=== PATIENT | male | born 1970 | race Caucasian/White ===

== ENCOUNTER 2019-07-19 09:17 | Outpatient (CLI) | payer OTHER, SELFPAY ==
[2019-07-19 10:07] LABS: Hemoglobin 16.6 g/dL (14.0-18.0); Mean Corpuscular HGB Conc 33.9 g/dl (32-36); Mean Corpuscular Hemoglobin 30.3 pg (26-34); Mean Corpuscular Volume 89.4 fl (80-100); Mean Platelet Volume 10.1 fl (7.4-10.4); Platelet Count Result 205 k/mm3 (150-375); Red Blood Count 5.48 M/mm3 (4.6-6.20); Red Cell Distribution Width 12.8 % (11.5-14.5); White Blood Count 5.7 K/mm3 (4.5-10.0)
[2019-07-19 10:19] LABS: Cholesterol 223 mg/dL (0-200); HDL Direct 42 mg/dL; Triglycerides 84 mg/dL (<150)
[2019-07-19 10:22] LABS: Blood Urea Nitrogen 14 mg/dL (9-20); Calcium 9.2 mg/dL (8.4-10.2); Carbon Dioxide 30 mmol/L (22-30); Chloride 103 mmol/L (98-107); Estimated Glomerular Filt Rate > 60; Glucose 95 mg/dL (75-110); Potassium 4.2 mmol/L (3.4-5.0); Sodium 139 mmol/L (137-145)
[2019-07-19 10:30] LABS: LDL Cholesterol Direct 149 mg/dL
[2019-07-19 10:50] LABS: Prostate Specific Antigen 0.5 ng/mL (< OR = 4.0)
== END 2019-07-19 09:18 | disposition home or self-care (01) ==
PROVIDERS: Nurse Practitioner Family; PCP Family Medicine; Visit Provider Physician Assistant Medical
DX: I10 Essential (primary) hypertension (principal); Z13.220 Encounter for screening for lipoid disorders; Z12.5 Encounter for screening for malignant neoplasm of prostate
CPT/HCPCS: 36415; 80048; 80061; 84153; 84443; 85027; G0103

== ENCOUNTER 2019-07-26 09:28 | Outpatient (CLI) | payer OTHER, SELFPAY ==
--- NOTE | 2019-07-26 10:25 | ECHO_ITS ---
Patient Info Name: Renny Gonzalez Age: 49 years : 1970 Gender: Male Ht: 76 in Wt: 280 lbs BSA: 2.65 m2 HR: 68 bpm BP: 142 / 90 mmHg Technical Quality: Good Exam Date: 07/26/2019 10:34 AM Exam Location: [facility] Patient Status: Outpatient Admit Date: 07/26/2019 Staff Ordering Physician: Darius Yin MD Laundry Housekeeping Aide: Yaima Young RDCS Attending Provider: Darius Yin MD Referring Physician: Humphrey ROGER; Exam Type: CA echo doppler color flow Study Info Indications - palpitations Complete two-dimensional, color flow and Doppler transthoracic echocardiogram is performed. Summary 1. Left ventricular chamber dimension is normal. 2. Left ventricular systolic function is normal, estimated at 60-65%. 3. There is mildly increased left ventricular wall thickness. 4. The left ventricular diastolic function is grade I diastolic dysfunction. 5. E/e' 8 is minimally elevated. 6. Right ventricular chamber dimension is mildly enlarged. 7. Left atrial chamber dimension is mildly enlarged. 8. Right atrial chamber dimension is mildly enlarged. 9. There is mild mitral valve regurgitation. 10. There is trace tricuspid valve regurgitation. 11. No pulmonary hypertension, estimated pulmonary arterial systolic pressure is 30 mmHg. 12. There is mild pulmonic regurgitation. Left Ventricle E/e' 8 is minimally elevated. Left ventricular chamber dimension is normal. Left ventricular systolic function is normal, estimated at 60-65%. There is mildly increased left ventricular wall thickness. The left ventricular diastolic function is grade I diastolic dysfunction. Right Ventricle Right ventricular chamber dimension is mildly enlarged. Right ventricular systolic function is normal. Left Atria Left atrial chamber dimension is mildly enlarged. Right Atria Right atrial chamber dimension is mildly enlarged. Aortic Valve The aortic valve is trileaflet. There is no aortic valve stenosis. There is no aortic valve regurgitation. Pulmonic Valve There is mild pulmonic regurgitation. Mitral Valve There is no mitral valve stenosis. There is mild mitral valve regurgitation. Tricuspid Valve There is trace tricuspid valve regurgitation. No pulmonary hypertension, estimated pulmonary arterial systolic pressure is 30 mmHg. Pericardium/Pleural There is no pericardial effusion. Inferior Vena Cava Normal inferior vena cava with >50% collapse upon inspiration consistent with normal right atrial pressure, 5 mmHg. Aorta The aortic root size at the sinus of Valsalva is normal. Left Ventricular Outflow Tract Name Value Normal LVOT 2D LVOT Diameter 2.2 cm LVOT Doppler LVOT Peak Gradient 4 mmHg LVOT Mean Gradient 2 mmHg LVOT VTI 22 cm LVOT VTI/AV VTI Ratio 1.0 LVOT Stroke Volume 88 ml LVOT CO 15.6 l/min LVOT CI 5.9 l/min/m2 Pulmonic Valve
--- NOTE | 2019-07-29 15:18 | WPDHOLTEREM ---
Holter/Event Monitor Holter/Event Monitor Date of procedure: 07/26/19 Procedure Type: 24 hour holter monitor Indications: Palpitations Conclusion: 1. 24 hour holter monitor on 07/26/19. 2. Underlying rhythm is sinus rhythm. HR range 44-136 bpm; average HR 67 bpm. 3. There are 4 premature supraventricular complexes. No supraventricular tachycardia. 4. There are 3,383 premature ventricular complexes, 2 ventricular couplets, 1,114 ventricular bigeminy, 9 ventricular trigeminy. No ventricular tachycardia. 5. No sinoatrial or atrioventricular blocks. No significant pauses greater than seconds. 6. No symptoms available for correlation.
== END 2019-07-26 09:29 | disposition home or self-care (01) ==
PROVIDERS: PCP Family Medicine; Visit Provider Family Medicine
DX: R00.2 Palpitations (principal); I95.1 Orthostatic hypotension; I49.3 Ventricular premature depolarization; I34.0 Nonrheumatic mitral (valve) insufficiency; I37.1 Nonrheumatic pulmonary valve insufficiency
CPT/HCPCS: 93225; 93226; 93306

== ENCOUNTER 2020-02-25 00:38 | Outpatient (CLI) | payer OTHER, SELFPAY ==
[2020-02-25 18:51] LABS: SARS-CoV-2 RNA PCR Negative
== END 2020-02-25 00:39 | disposition home or self-care (01) ==
LOC: ANHCOVIDDT 00:38
PROVIDERS: PCP Family Medicine; Visit Provider Internal Medicine Gastroenterology
DX: Z01.818 Encounter for other preprocedural examination (principal); Z20.828 Contact with and (suspected) exposure to other viral communicable diseases
CPT/HCPCS: 87635; C9803; U0003

== ENCOUNTER 2020-02-28 00:42 | Day surgery (SDC) | payer OTHER, SELFPAY ==
[2020-02-19 14:22] VITALS: BMI 33.0
[2020-02-28 09:59] VITALS: BP 121/87; PULSE 74; RESP 16; TEMP 36.6; O2SAT 74; BMI 33.1
[2020-02-28] MEDS: LACTATED RINGERS 1,000 ML 150 ML IV CONT (10:04)
--- NOTE | 2020-02-28 11:06 | PM.HPGS ---
History of Present Illness History of Present Illness Consent: Risks, benefits, and alternatives have been discussed and questions answered. Patient agrees to proceed with procedure. Chief complaint: Neoplasm Screening Narrative: Renny Gonzalez is a 49 year old male here for first screening colonoscopy Review of Systems Constitutional: Constitutional: Denies headache(s) and Denies weakness Eyes: Eyes: Denies blurry vision ENT: Reports Normal hearing present, Denies headache(s) and Denies neck pain Cardiovascular: Cardiovascular: Denies chest pain and Denies dyspnea Respiratory: Respiratory: Denies dyspnea Gastrointestinal: Gastrointestinal: Reports no additional gastrointestinal complaints Genitourinary: Genitourinary: Denies dysuria Musculoskeletal: Musculoskeletal: Denies neck pain Integumentary/Breasts: Skin/Breast: Denies dry skin Neurologic: Reports Normal hearing present, Denies headache(s) and Denies weakness Psychiatric: Psychiatric: Denies anxiety Endocrine: Endocrine: Denies change in body appearance Hematologic/Lymphatic: Hematologic/Lymphatic: Denies easy bleeding Allergic/Immunologic: Allergic/Immunologic: Denies urticaria [facility] Past Medical History Medical History (Updated 02/28/20 @ 11:06 by Steve Billings MD) Colon cancer screening HLD (hyperlipidemia) HTN (hypertension), benign Family History Family History (Updated 12/01/17 @ 15:37 by DOCTOR UNKNOWN) Father Diabetes mellitus Hypertension Family history of cardiovascular disease Malignant neoplasm of prostate Mother Hypertension Social History Social History (Updated 07/26/19 @ 08:30 by Caty Priest) Smoking status: Never smoker Alcohol intake: current Drinks per week: 1 Substance use: never Substance use type: does not use Living arrangements: with family Gender identity (if verbalized by the patient): Male Spiritual care concerns: No Meds Home Medications and Allergies Home Medications Medication Instructions Recorded Confirmed Type aspirin [Adult Low Dose Aspirin] 81 mg PO DAILY 02/19/20 02/28/20 History sodium,potassium,mag sulfates 17.5 See Rx Instructions PO .COMPLEX 02/26/20 History gram-3.13 gram-1.6 gram oral soln Allergies Allergy/AdvReac Type Severity Reaction Status Date / Time Penicillins Allergy Intermediate Rash Verified 02/28/20 09:58 Vital Signs Vital Signs - 24 hr 02/28/20 09:59 Temperature 97.8 F Pulse Rate 74 Respiratory Rate 16 Blood Pressure 121/87 Pulse Oximetry 74 L Exam Const: General: comfortable and no acute distress HENMT: General nose exam: Normal nares present Eyes: General: appearance normal, both eyes and all related structures Neck: Neck: no JVD Resp: Auscultation: clear to auscultation bilaterally Cardio: Rate: regular rate Rhythm: regular rhythm GI: Inspection: non-distended GI Palp: Yes Soft to palpation Skin: General skin exam: normal color Neuro: General: gait normal Speech: normal speech Extrem: General: normal to inspection Psych: Mental Status: mental status grossly normal Assessment and Plan Assessment and plan (1) Colon cancer screening: Code(s): Z12.11 - Encounter for screening for malignant neoplasm of colon Status: Acute Assessment and Plan: will proceed with colonoscopy
[2020-02-28 11:31] VITALS: BP 121/84; PULSE 66; RESP 19; O2SAT 96
[2020-02-28 11:41] VITALS: BP 134/82; PULSE 80; RESP 24; O2SAT 99
[2020-02-28 11:51] VITALS: BP 145/85; PULSE 71; RESP 14; O2SAT 99
== END 2020-02-28 12:07 | disposition home or self-care (01) ==
PROVIDERS: PCP Family Medicine; Visit Provider Internal Medicine Gastroenterology
PROC: 0DJD8ZZ Inspection of Lower Intestinal Tract, Via Natural or Artificial Opening Endoscopic (ICD-10-PCS; CPT 45378; principal; 2020-02-28 11:15)
DX: Z12.11 Encounter for screening for malignant neoplasm of colon (principal); D12.2 Benign neoplasm of ascending colon; K57.30 Diverticulosis of large intestine without perforation or abscess without bleeding; K64.8 Other hemorrhoids; I10 Essential (primary) hypertension; E78.5 Hyperlipidemia, unspecified
CPT/HCPCS: 45385; 88305; J2704; J7120

== ENCOUNTER 2020-05-15 07:42 | Outpatient (CLI) | payer OTHER, SELFPAY ==
--- NOTE | ~2020-05-15 | CT_ITS ---
EXAMINATION: CT soft tissue neck w con EXAM DATE: 05/15/2020 08:33 INDICATION: R07.0 - Throat pain. TECHNIQUE: Spiral CT of the neck was performed following intravenous injection of 75 mL Omnipaque 350 . Axial, coronal and sagittal images were reviewed. The dose-length product (DLP) for this examinat ion was 1147.69 mGy-cm. The exposure was tailored according to patient size (auto mA exposure contro l), and iterative reconstruction (ASIR) was used as additional dose reduction technique. There is no prior study for comparison. FINDINGS: The thyroid gland is unremarkable. The submandibular and parotid glands are symmetric. There is no cervical lymphadenopathy. There are no masses identified. The superior mediastinum is unremarkable. The airway is unremarkable. Parapharyngeal and pre-glottic fat planes are preserve d. The opacified vasculature is patent. There is no carotid stenosis. The orbits are unremarkable. Visualized sinuses and mastoid air cells are well aerated. Lung apices unremarkable. There is m oderate disc disease at at C6-7, mild to moderate at C5-6, left neural foraminal stenosis at these le vels. IMPRESSION: Lower cervical spondylosis.. Reviewed, dictated and finalized at location B. MECHANIC
[2020-05-15 08:20] LABS: Estimated Glomerular Filt Rate > 60
== END 2020-05-15 07:43 | disposition home or self-care (01) ==
PROVIDERS: PCP Family Medicine; Visit Provider Otolaryngology
DX: R07.0 Pain in throat (principal); M47.892 Other spondylosis, cervical region
CPT/HCPCS: 70491; Q9967

== ENCOUNTER → 2020-10-16 12:03 | Outpatient (REF) | payer OTHER, SELFPAY | LOC: ANHLAB 12:03 | PROVIDERS: PCP Family Medicine; Visit Provider Surgery Plastic and Reconstructive Surgery | DX: L57.0 Actinic keratosis (principal) | CPT/HCPCS: 88305 ==

== ENCOUNTER 2021-07-14 08:34 | Outpatient (CLI) | payer OTHER, SELFPAY ==
--- NOTE | ~2021-07-14 | US_ITS ---
EXAMINATION: US venous doppler [facility] DATE: 07/14/2021 09:40 INDICATION: Left lower limb localized swelling. TECHNIQUE: Grayscale ultrasound images without and with compression and Doppler ultrasound images of the left lower extremity veins were obtained. COMPARISON: None. FINDINGS: The visualized portions of left common femoral vein, profunda (deep) femoral vein, femoral vein, and greater saphenous vein outflow are patent. There is thrombus in left popliteal, posterior tibial, and peroneal veins. IMPRESSION: 1. Deep vein thrombosis involving left popliteal, posterior tibial, and peroneal veins. I discussed this result with Dr. Gonzalez. Reviewed, dictated and finalized at location A. IMPRESSION: 1. Deep vein thrombosis involving left popliteal, posterior tibial, and perone al veins. I discussed this result with Dr. Gonzalez.
== END 2021-07-14 08:35 | disposition home or self-care (01) ==
LOC: ANHIMG 08:35
PROVIDERS: PCP Family Medicine; Visit Provider Physician Assistant Medical
DX: I82.432 Acute embolism and thrombosis of left popliteal vein (principal); I82.442 Acute embolism and thrombosis of left tibial vein; I82.452 Acute embolism and thrombosis of left peroneal vein
CPT/HCPCS: 93971

== ENCOUNTER 2021-07-16 08:00 | Outpatient (CLI) | payer OTHER, SELFPAY ==
[2021-07-16 08:23] LABS: Add Urine Microscopic? YES; Appearance Urine Clear (Clear); Bilirubin Urine Negative (Negative); Blood Urine 1+ (Negative); Color Urine Yellow (Yellow); Glucose Urine UA Negative (Negative); Ketones Urine Trace mg/dL (Negative); Leukocyte Esterase Ur Negative LEU/UL (NEGATIVE); Mucus Urine Rare /lpf; Nitrate Urine Negative (Negative); Protein Urine Negative (Negative); Specific Grav Ur 1.021 (1.001-1.035); Squamous Epithelial Cell Urine Rare /hpf (Few); Urobilinogen Urine Negative mg/dL (<2.0); WBC Urine 0-3 /hpf (0-3)
[2021-07-16 08:23] LABS: Basophils Absolute Auto 0.1 K/mm3 (0.0-0.1); Basophils Percent Auto 1.1 % (0.2-1.2); Eosinophils Absolute Auto 0.3 K/mm3 (0-0.3); Eosinophils Percent Auto 4.1 % (0-4.4); Hematocrit 47.4 % (42.0-52.0); Hemoglobin 15.9 g/dL (14.0-18.0); Immature Granulocyte Absolute 0.02 K/mm3 (0.00-0.031); Immature Granulocyte Percent A 0.3 % (0-0.5); Lymphocytes Absolute Auto 1.83 K/mm3 (0.9-3.2); Lymphocytes Percent Auto 27.6 % (18.3-44.2); Mean Corpuscular HGB Conc 33.5 g/dl (32-36); Mean Corpuscular Volume 92.4 fl (80-100); Mean Platelet Volume 10.1 fl (7.4-10.4); Monocytes Absolute Auto 0.8 K/mm3 (0.1-0.6); Monocytes Percent Auto 12.5 % (2.6-8.5); Neutrophils Absolute Auto 3.6 K/mm3 (1.3-6.7); Neutrophils Percent Auto 54.4 % (45.5-73.1); Platelet Count Result 205 k/mm3 (150-375); Red Blood Count 5.13 M/mm3 (4.6-6.20); Red Cell Distribution Width 12.1 % (11.5-14.5); White Blood Count 6.6 K/mm3 (4.5-10.0)
[2021-07-16 08:28] LABS: Hemoglobin A1C 5.3 % (<5.7)
[2021-07-16 08:30] LABS: Alanine Aminotransferase 40 U/L (4-50); Albumin Level 4.5 g/dL (3.5-5.1); Alkaline Phosphatase 80 U/L (38-126); Anion Gap 7 mmol/L (8-16); Aspartate Amino Transferase 37 U/L (17-59); Bilirubin,Total 1.6 mg/dL (0.2-1.3); Blood Urea Nitrogen 12 mg/dL (9-20); Calcium 8.7 mg/dL (8.4-10.2); Carbon Dioxide 28 mmol/L (22-30); Chloride 102 mmol/L (98-107); Cholesterol 195 mg/dL (0-200); Estimated Glomerular Filt Rate > 60; Glucose 102 mg/dL (65-110); HDL Direct 40 mg/dL; Potassium 3.7 mmol/L (3.4-5.0); Sodium 137 mmol/L (137-145); Triglycerides 75 mg/dL (<150)
[2021-07-16 08:42] LABS: LDL Cholesterol Direct 117 mg/dL
[2021-07-16 09:02] LABS: Prostate Specific Antigen 0.6 ng/mL (< OR = 4.0); Thyroid Stimulating Hormone 0.911 uIU/mL (0.465-4.680)
== END 2021-07-16 08:01 | disposition home or self-care (01) ==
PROVIDERS: PCP Family Medicine; Visit Provider Family Medicine
DX: Z00.00 Encounter for general adult medical examination without abnormal findings (principal); E78.5 Hyperlipidemia, unspecified; I10 Essential (primary) hypertension; R35.1 Nocturia
CPT/HCPCS: 36415; 80053; 80061; 81001; 83036; 84153; 84443; 85025

== ENCOUNTER 2021-07-23 07:27 | Outpatient (CLI) | payer OTHER, SELFPAY ==
--- NOTE | 2021-07-25 21:23 | WPDSLEEPSTUD ---
Sleep Study Date of Study: 07/23/21 Ordering Provider: Cody Jones MD Interpreting Physician: Tanisha Bowman DO Sleep Study Type: Polysomnogram Height: 1.93 m Weight: 127.006 kg Body Mass Index: 34.0 Neck Circumference (inches): 17 [place]: 9 Reason for Sleep Study Unrefreshing sleep, Daytime somnolence, morning headaches Sleep History The patient is a 51-year-old male with hypertension, GERD, seasonal allergies, left-sided sciatica and history of DVT that had a sleep study ordered by his ENT physician for evaluation of sleep apnea the patient denies awakening from sleep short of breath. He occasionally awakens at night with heartburn, belching or cough. He occasionally snores but it is rarely loud enough that others complain. He rarely has trouble sleeping when he has a cold. He denies waking up gasping for air throughout the night. He occasionally has breathing problems at night observed by himself or others. He rarely sweats excessively at night. He occasionally has heart palpitations or irregular heartbeats during the night. He occasionally falls asleep during the day. He rarely falls asleep while driving. He occasionally has trouble at work due to sleepiness. He denies sleep paralysis and cataplexy. He rarely experiences vivid dreamlike scenes upon awakening or falling asleep. He denies having nightmares. He occasionally remembers his dreams. He occasionally has thoughts racing through his mind. He denies feeling sad or depressed. He rarely has anxiety. He occasionally has muscular tension. He occasionally notices parts of his body jerk. He denies kicking during the night. He rarely has crawling and aching feelings in his legs. He denies having leg pain during the. He denies grinding his teeth during sleep and awakening with morning jaw pain. He is occasionally bothered by pain during the day but never awakened by pain during the night. He occasionally wakes up feeling stiff in morning. He rarely wakes up with sore or achy muscles. He occasionally wakes up with pain neck, spine and other joints. He goes to bed at 10:00 p.m. on weekdays and 11:00 p.m. on the weekends. It takes him 10-15 minutes to fall asleep at night. He wakes up 2-3 times throughout the night for unknown reasons. He will lay in bed until he is able to fall asleep within 10-15 minutes. He wakes up between 4:15-6 a.m. on weekdays and between 6-7 a.m. on weekends. He typically gets 5-6 hours of sleep per night. He will stay in bed for 30 minutes after waking up in the morning. He currently lives with his and 2 sons. The patient denies consuming any caffeinated beverages within 2 hours of bedtime. He does not engage in physical exercise before bedtime. He will read and watch television before falling asleep. He denies taking naps in the afternoon or the evening. He drinks half a cup of caffeinated beverage per day. He denies tobacco, alcohol and recreational drug use. [facility] Past Medical History Medical History (Updated 07/25/21 @ 21:50 by Tanisha Bowman DO) Colon cancer screening Edema HLD (hyperlipidemia) HTN (hypertension), benign Localized swelling of left lower leg Obesity ALONSO (obstructive sleep apnea) Family History Family History Father Diabetes mellitus Hypertension Family history of cardiovascular disease Malignant neoplasm of prostate Mother Hypertension Social History Social History Smoking status: Never smoker Alcohol intake: current Drinks per week: 1 Substance use: never Substance use type: does not use Gender identity (if verbalized by the patient): Male Spiritual care concerns: No Medications Home Medications Medication Instructions Recorded Confirmed Type aspirin [Adult Low Dose Aspirin] 81 mg PO DAILY 02/19/20 07/07/21 History lisinopril 10 1 table
[2021-07-25 21:41] VITALS: BMI 34.0
== END 2021-07-24 06:39 | disposition home or self-care (01) ==
LOC: ANHCSM 07:27
PROVIDERS: PCP Family Medicine; Visit Provider Otolaryngology
DX: G47.39 Other sleep apnea (principal); R53.83 Other fatigue; R06.83 Snoring; G47.61 Periodic limb movement disorder; G47.33 Obstructive sleep apnea (adult) (pediatric)
CPT/HCPCS: 95810

== ENCOUNTER 2021-12-15 08:18 | Outpatient (CLI) | payer OTHER, SELFPAY ==
[2021-12-15 08:38] LABS: Basophils Absolute Auto 0.1 K/mm3 (0.0-0.1); Basophils Percent Auto 1.6 % (0.2-1.2); Eosinophils Absolute Auto 0.3 K/mm3 (0-0.3); Eosinophils Percent Auto 5.1 % (0-4.4); Hematocrit 47.9 % (42.0-52.0); Immature Granulocyte Absolute 0.01 K/mm3 (0.00-0.031); Immature Granulocyte Percent A 0.2 % (0-0.5); Lymphocytes Absolute Auto 1.77 K/mm3 (0.9-3.2); Lymphocytes Percent Auto 36.3 % (18.3-44.2); Mean Corpuscular HGB Conc 33.4 g/dl (32-36); Mean Corpuscular Hemoglobin 31.3 pg (26-34); Mean Corpuscular Volume 93.6 fl (80-100); Mean Platelet Volume 10.1 fl (7.4-10.4); Monocytes Absolute Auto 0.6 K/mm3 (0.1-0.6); Monocytes Percent Auto 11.3 % (2.6-8.5); Neutrophils Absolute Auto 2.2 K/mm3 (1.3-6.7); Neutrophils Percent Auto 45.5 % (45.5-73.1); Platelet Count Result 197 k/mm3 (150-375); Red Blood Count 5.12 M/mm3 (4.6-6.20); Red Cell Distribution Width 12.4 % (11.5-14.5); White Blood Count 4.9 K/mm3 (4.5-10.0)
[2021-12-15 08:58] LABS: Cholesterol 188 mg/dL (0-200); HDL Direct 39 mg/dL; Triglycerides 76 mg/dL (<150)
[2021-12-15 09:10] LABS: LDL Cholesterol Direct 119 mg/dL
[2021-12-19 16:43] LABS: Testosterone Free 80.6 pg/mL (35.0-155.0); Testosterone Total 588 ng/dL (250-1100)
== END 2021-12-15 08:19 | disposition home or self-care (01) ==
PROVIDERS: PCP Family Medicine; Visit Provider Family Medicine
DX: E78.5 Hyperlipidemia, unspecified (principal); I10 Essential (primary) hypertension; R79.89 Other specified abnormal findings of blood chemistry
CPT/HCPCS: 36415; 80061; 84402; 84403; 85025

== ENCOUNTER → 2022-01-19 13:50 | Outpatient (CLI) | payer OTHER, SELFPAY ==
--- NOTE | ~2022-01-19 | US_ITS ---
EXAMINATION: US venous doppler [facility] DATE: 01/19/2022 14:21 INDICATION: Left lower limb deep venous thrombosis for evaluation post completion of a course of anti coagulation TECHNIQUE: Grayscale ultrasound images without and with compression and Doppler ultrasound images of the left lower extremity veins were obtained. COMPARISON: None. FINDINGS: Persistent noncompressible thrombus in the left popliteal vein. There is some nonocclusive thrombus i n the paired left posterior tibial veins which are partially compressible. The left peroneal veins ar e now patent. The visualized portions of left common femoral vein, profunda (deep) femoral vein, femo ral gastrocnemius vein and greater saphenous vein outflow remain patent. IMPRESSION: 1. Persistent deep venous thrombosis in the left popliteal and posterior tibial veins with resolutio n of the thrombus previously in the left peroneal veins. Reviewed, dictated and finalized at location B. IMPRESSION: 1. Persistent deep venous thrombosis in the left popliteal and posterior tibia l veins with resolution of the thrombus previously in the left peroneal veins.
== END ==
PROVIDERS: PCP Family Medicine; Visit Provider Family Medicine
DX: I82.432 Acute embolism and thrombosis of left popliteal vein (principal); I82.442 Acute embolism and thrombosis of left tibial vein
CPT/HCPCS: 93971

== ENCOUNTER 2022-07-21 07:28 | Outpatient (CLI) | payer OTHER, SELFPAY ==
[2022-07-21 07:50] LABS: Basophils Absolute Auto 0.1 K/mm3 (0.0-0.1); Basophils Percent Auto 1.3 % (0.2-1.2); Eosinophils Absolute Auto 0.1 K/mm3 (0-0.3); Eosinophils Percent Auto 2.9 % (0-4.4); Hemoglobin 15.9 g/dL (14.0-18.0); Lymphocytes Percent Auto 29.4 % (18.3-44.2); Mean Corpuscular HGB Conc 33.8 g/dl (32-36); Mean Corpuscular Volume 91.6 fl (80-100); Mean Platelet Volume 9.7 fl (7.4-10.4); Monocytes Absolute Auto 0.4 K/mm3 (0.1-0.6); Neutrophils Absolute Auto 2.1 K/mm3 (1.3-6.7); Neutrophils Percent Auto 55.4 % (45.5-73.1); Platelet Count Result 181 k/mm3 (150-375); Red Blood Count 5.13 M/mm3 (4.6-6.20); Red Cell Distribution Width 12.7 % (11.5-14.5); White Blood Count 3.7 K/mm3 (4.5-10.0)
[2022-07-21 08:03] LABS: Alanine Aminotransferase 28 U/L (6-50); Albumin Level 4.3 g/dL (3.5-5.1); Alkaline Phosphatase 72 U/L (38-126); Anion Gap 7 mmol/L (8-16); Aspartate Amino Transferase 27 U/L (17-59); Bilirubin,Total 1.2 mg/dL (0.2-1.3); Blood Urea Nitrogen 19 mg/dL (9-20); Calcium 8.9 mg/dL (8.4-10.2); Carbon Dioxide 30 mmol/L (22-30); Chloride 104 mmol/L (98-107); Cholesterol 182 mg/dL (0-200); Estimated Glomerular Filt Rate > 60; Glucose 96 mg/dL (65-110); HDL Direct 39 mg/dL; Potassium 4.1 mmol/L (3.4-5.0); Sodium 141 mmol/L (137-145); Triglycerides 78 mg/dL (<150)
[2022-07-21 08:14] LABS: LDL Cholesterol Direct 107 mg/dL
[2022-07-21 08:31] LABS: Appearance Urine Clear (Clear); Bilirubin Urine Negative (Negative); Blood Urine Negative (Negative); Color Urine Yellow (Yellow); Glucose Urine UA Negative (Negative); Ketones Urine Trace mg/dL (Negative); Leukocyte Esterase Ur Negative LEU/UL (NEGATIVE); Nitrate Urine Negative (Negative); Protein Urine Negative (Negative); Specific Grav Ur 1.024 (1.001-1.035); pH Urine 6.5 (5.0-9.0)
[2022-07-21 08:33] LABS: Prostate Specific Antigen 0.8 ng/mL (< OR = 4.0); Thyroid Stimulating Hormone 0.745 uIU/mL (0.465-4.680)
[2022-07-21 08:39] LABS: Add Urine Microscopic? NO
[2022-07-26 19:58] LABS: Testosterone Free 40.5 pg/mL (35.0-155.0); Testosterone Total 365 ng/dL (250-1100)
== END 2022-07-21 07:29 | disposition home or self-care (01) ==
LOC: ANHLAB 07:29
PROVIDERS: PCP Family Medicine; Visit Provider Family Medicine
DX: Z00.00 Encounter for general adult medical examination without abnormal findings (principal); R79.89 Other specified abnormal findings of blood chemistry; E78.5 Hyperlipidemia, unspecified; I10 Essential (primary) hypertension
CPT/HCPCS: 36415; 80053; 80061; 81003; 84153; 84402; 84403; 84443; 85025

== ENCOUNTER 2024-03-08 08:00 | Outpatient (CLI) | payer OTHER, SELFPAY ==
[2024-03-08 08:33] LABS: Basophils Absolute Auto 0.1 K/mm3 (0.0-0.1); Basophils Percent Auto 1.3 % (0.2-1.2); Eosinophils Absolute Auto 0.2 K/mm3 (0-0.3); Eosinophils Percent Auto 3.2 % (0-4.4); Hematocrit 48.3 % (42.0-52.0); Hemoglobin 16.4 g/dL (14.0-18.0); Immature Granulocyte Absolute 0.03 K/mm3 (0.00-0.031); Immature Granulocyte Percent A 0.5 % (0-0.5); Lymphocytes Absolute Auto 2.07 K/mm3 (0.9-3.2); Lymphocytes Percent Auto 34.6 % (18.3-44.2); Mean Corpuscular Volume 91.3 fl (80-100); Mean Platelet Volume 9.8 fl (7.4-10.4); Monocytes Absolute Auto 0.7 K/mm3 (0.1-0.6); Monocytes Percent Auto 11.7 % (2.6-8.5); Neutrophils Absolute Auto 2.9 K/mm3 (1.3-6.7); Neutrophils Percent Auto 48.7 % (45.5-73.1); Platelet Count Result 219 k/mm3 (150-375); Red Blood Count 5.29 M/mm3 (4.6-6.20); Red Cell Distribution Width 12.5 % (11.5-14.5)
[2024-03-08 08:46] LABS: Alanine Aminotransferase 47 U/L (6-50); Albumin Level 4.3 g/dL (3.5-5.1); Alkaline Phosphatase 77 U/L (38-126); Anion Gap 1 mmol/L (4-12); Aspartate Amino Transferase 32 U/L (17-59); Bilirubin,Total 1.2 mg/dL (0.2-1.3); Blood Urea Nitrogen 16 mg/dL (9-20); Calcium 8.8 mg/dL (8.4-10.2); Carbon Dioxide 32 mmol/L (22-30); Chloride 105 mmol/L (98-107); Cholesterol 187 mg/dL (0-200); Estimated Glomerular Filt Rate > 60; Glucose 101 mg/dL (65-110); HDL Direct 36 mg/dL; Sodium 138 mmol/L (137-145); Triglycerides 101 mg/dL (<150)
[2024-03-08 08:56] LABS: LDL Cholesterol Direct 113 mg/dL
[2024-03-08 09:14] LABS: Prostate Specific Antigen 0.6 ng/mL (< OR = 4.0)
[2024-03-15 11:13] LABS: Testosterone Free 51 pg/mL (35.0-155.0); Testosterone Total 379 ng/dL (250-1100)
== END 2024-03-08 08:01 | disposition home or self-care (01) ==
PROVIDERS: PCP Family Medicine; Visit Provider Family Medicine
DX: Z00.00 Encounter for general adult medical examination without abnormal findings (principal); R79.89 Other specified abnormal findings of blood chemistry; I10 Essential (primary) hypertension; E78.5 Hyperlipidemia, unspecified; Z80.42 Family history of malignant neoplasm of prostate
CPT/HCPCS: 36415; 80053; 80061; 84153; 84402; 84403; 85025

== ENCOUNTER 2024-06-10 07:14 | Outpatient (CLI) | payer OTHER, SELFPAY ==
--- OUTSIDE RECORDS SUMMARY | 2024-06-10 07:17 | XMS_ITS | Clinical Summary ---
Author Organization [facility] Address [address] [place] [address] Care Team Providers Care Pet Caretaker Name Role Phone Unavailable Primary Care Provider Unavailabl e Allergies Active Allergy Reactions Criticality Noted Date Comments Penicillins Rash Low 08/26/2020 Medications nebivoloL (BYSTOLIC) 5 mg Tablet Take 5 mg by mouth. Active testosterone cypionate (DEPO-TESTOSTE LUI SM) 200 mg/mL Oil Inject 0.5 mL (100 mg) by intramuscular injection every 7 days as needed for testosterone deficiency. 10 mL 3 Active celecoxib (CeleBREX) 200 mg capsule Take 1 Capsule (200 mg) by mouth 1 time daily as needed for pain. 90 Capsule 2 03/30/2023 1:07 PM VICE PRESIDENT BUSINESS DEVELOPMENT 3 Active amLODIPine (NORVASC) 10 mg tablet Take 1 Tablet (10 mg) by mouth daily. 90 Tablet 3 04/20/2023 2:15 PM VICE PRESIDENT BUSINESS DEVELOPMENT 4 Active metoprolol succinate (TOPROL XL) 50 mg Extended Release 24 hour tablet Take 1 Tablet (50 mg) by mouth daily. 90 Tablet 3 10/26/2023 6:59 PM CDT 4 Active tobramycin-dex AMETHasone (TOBRADEX) 0.3-0.1 % suspension Instill 1 drop into each eye four times daily; need regular strength please 5 mL 11/08/2023 6:06 PM CDT 4 Active metoprolol succinate (TOPROL XL) 50 mg Extended Release 24 hour tablet Take 1 Tablet (50 mg) by mouth daily. 90 Tablet 3 02/28/2024 4:58 PM VICE PRESIDENT BUSINESS DEVELOPMENT 4 Active Active Problems No known active problems Encounters Date Type Department Care Team Description 05/29/2024 External Device Data [facility] ABSTRACTION Provider, Abstract 05/28/2024 External Device Data [facility]STRACTION Provider, Abstract 04/23/2024 External Device Data [facility]STRACTION Provider, Abstract from Last 3 Months Social History Tobacco Use Types Packs/Day Years Used Date Smoking Tobacco: Never Smokeless Tobacco: Never Sex and Gender Information Value Date Recorded Sex Assigned at Not on file Legal Sex Male 9:28 AM CDT Gender Identity Not on file Sexual Orientation Not on file Last Filed Vital Signs Vital Sign Reading Time Taken Comments Blood Pressure 134/89 08/26/2020 2:47 PM CDT Pulse 88 08/26/2020 2:47 PM CDT Temperature 36.4 C (97.5 F) 08/26/2020 2:47 PM CDT Respiratory Rate 18 08/26/2020 2:47 PM CDT Oxygen Saturation 98% 08/26/2020 2:47 PM CDT Inhaled Oxygen Concentration - - Weight 124.7 kg (275 lb) 08/26/2020 2:47 PM CDT Height 193 cm (6' 4 ) 08/26/2020 2:47 PM CDT Body Mass Index 33.47 08/26/2020 2:47 PM CDT Plan of Treatment Health Maintenance Due Date Last Done Comments DTAP/TDAP/TD VACCINES (1 - Tdap) 1987 HEPATITIS B VACCINES (1 of 3 - 19+ 3-dose series) 1987 COLORECTAL SCREENING 2013 Colorectal Cancer Screening 2013 FIT-DNA Q 3 years 2013 FIT/FOBT Q 1 year 2013 Flex Sig/CT Colonography Q 5 years 2013 ZOSTER VACCINE (1 of 2) 2018 INFLUENZA VACCINE (#1) 2023 PNEUMOCOCCAL VACCINE 0-49 YEARS Aged Out No longer eligible based on patient's age to complete this topic Insurance CHOICE PLUS [facility] CHOICE RX OPTUM RX Member Subscriber Plan / Payer (Ef fective 2019-Present) Name:QUINTON GONZALEZ Relation to Subscriber:Self Name:Quinton Gonzalez Payer ID:Not on file Type:RX Commercial Address: [address] RX NATH PLANS (INTERNAL) [facility] [employer] RX [employer] Commercial
--- OUTSIDE RECORDS SUMMARY | 2024-06-10 07:17 | XMS_ITS | Continuity of Care Document ---
Author Name [facility] Address [address] [place] [address] Organization [facility] Care Team Providers Care Sample Finisher Name Role Phone [facility] Unavailable Unavailable Problems Problem Status Onset Date Problem Type Date of Resolution Comme nts Source Tachycardia, unspecified Active Diagnosis Allergies, Adverse Reactions, Alerts Substance Category Reaction Severity Reaction type Status Date Reported Comments Source penicillins Assertion Drug allergy Active [facility]
--- OUTSIDE RECORDS SUMMARY | 2024-06-10 07:17 | XMS_ITS | Clinical Summary ---
Author Organization [facility] [address] Address [address] [place] [address] Care Team Providers Care Special Education Paraeducator Name Role Phone Darius Yin MD Primary Care Provider Allergies Active Allergy Reactions Criticality Noted Date Comments Penicillins Rash Reaction: Rash, Active Problems Problem Noted Date Diagnosed Date 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 Social History Tobacco Use Types Packs/Day Years Used Date Smoking Tobacco: Never Personal Safety Answer Date Recorded Getting School Help Needed Not on file 03/26 Sex and Gender Information Value Date Recorded Sex Assigned at Not on file 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 Gender Identity Not on file Sexual Orientation Not on file Obstetrics History Plan of Treatment Health Maintenance Due Date Last Done Comments Colon Cancer Screening-Colonoscopy 1970 Depression Screening 1970 Hepatitis C Screening 1970 Prostate Cancer Screening-PSA 1968 DTaP/Tdap/Td Vaccine (1 - Tdap) 1979 Hepatitis B Screening 1986 Regular Well Visit/Exam 18-64 1986 Zoster Vaccine (1 of 2) 2018 Covid-19 Vaccine ( - 2023-2 5 season) 2023 04/07/2021, 03/27/2020, 03/06/2020 Influenza Vaccine (#1) 2023 Pneumococcal vaccine <65 Aged Out No longer eligible based on patient's age to complete this topic Insurance R [facility] Care Teams Special Education Paraeducator Relationship Specialty Start Date End Date Darius Yin MD [address] [place], [place] [id number] PCP - General Family Medicine 04/21/22
--- OUTSIDE RECORDS SUMMARY | 2024-06-10 07:18 | XMS_ITS | Referral Summary ---
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
[2024-06-10 07:59] LABS: Alanine Aminotransferase 40 U/L (6-50); Albumin Level 4.4 g/dL (3.5-5.1); Alkaline Phosphatase 73 U/L (38-126); Anion Gap 10 mmol/L (4-12); Aspartate Amino Transferase 34 U/L (17-59); Bilirubin,Total 1.6 mg/dL (0.2-1.3); Blood Urea Nitrogen 19 mg/dL (9-20); Calcium 8.8 mg/dL (8.4-10.2); Carbon Dioxide 27 mmol/L (22-30); Chloride 102 mmol/L (98-107); Cholesterol 171 mg/dL (0-200); Estimated Glomerular Filt Rate > 60; Glucose 94 mg/dL (65-110); HDL Direct 32 mg/dL; Potassium 3.9 mmol/L (3.4-5.0); Sodium 139 mmol/L (137-145); Triglycerides 79 mg/dL (<150)
[2024-06-10 08:10] LABS: LDL Cholesterol Direct 103 mg/dL
== END 2024-06-10 07:15 | disposition home or self-care (01) ==
LOC: ANHLAB 07:15
PROVIDERS: PCP Family Medicine; Visit Provider Family Medicine
DX: E78.5 Hyperlipidemia, unspecified (principal); R79.89 Other specified abnormal findings of blood chemistry
CPT/HCPCS: 36415; 80053; 80061; 84402; 84403

== ENCOUNTER 2024-07-26 07:24 | Outpatient (CLI) | payer OTHER, SELFPAY ==
--- OUTSIDE RECORDS SUMMARY | 2024-07-26 07:31 | XMS_ITS | Continuity of Care Document ---
Author Name [facility] Address [address] [place] [address] Organization [facility] Care Team Providers Care Periodontist Name Role Phone [facility] Unavailable Unavailable Problems Problem Status Onset Date Problem Type Date of Resolution Comme nts Source Tachycardia, unspecified Active Diagnosis Allergies, Adverse Reactions, Alerts Substance Category Reaction Severity Reaction type Status Date Reported Comments Source penicillins Assertion Drug allergy Active [facility]
--- OUTSIDE RECORDS SUMMARY | 2024-07-26 07:31 | XMS_ITS | Referral Summary ---
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
--- OUTSIDE RECORDS SUMMARY | 2024-07-26 07:31 | XMS_ITS | Clinical Summary ---
Author Organization [facility] Address [address] [place] [address] Care Team Providers Care Dietetic Technician Registered Name Role Phone Unavailable Primary Care Provider Unavailabl e Allergies Active Allergy Reactions Criticality Noted Date Comments Penicillins Rash Low 08/26/2020 Medications nebivoloL (BYSTOLIC) 5 mg Tablet Take 5 mg by mouth. Active testosterone cypionate (DEPO-TESTOSTE LUIS M) 200 mg/mL Oil Inject 0.5 mL (100 mg) by intramuscular injection every 7 days as needed for testosterone deficiency. 10 mL 3 Active celecoxib (CeleBREX) 200 mg capsule Take 1 Capsule (200 mg) by mouth 1 time daily as needed for pain. 90 Capsule 2 03/30/2023 1:07 PM DOLL SURGEON 3 Active amLODIPine (NORVASC) 10 mg tablet Take 1 Tablet (10 mg) by mouth daily. 90 Tablet 3 04/20/2023 2:15 PM DOLL SURGEON 4 Active metoprolol succinate (TOPROL XL) 50 [...] daily. 90 Tablet 3 02/28/2024 4:58 PM DOLL SURGEON 4 Active Active Problems No known active [...] (1 of 3 - 19+ 3-dose series) 03/20 COLORECTAL SCREENING 2013 Colorectal Cancer Screening 2013 FIT-DNA Q 3 years 2013 FIT/FOBT Q 1 year 2013 Flex Sig/CT Colonography Q 5 years 2013 ZOSTER VACCINE (1 of 2) 2018 INFLUENZA VACCINE (#1) 2023 Insurance CHOICE PLUS [facility] CHOICE RX [employer] RX Member Subscriber Plan / Payer (Ef fective 2019-Present) Name:QUINTON GONZALEZ Relation to Subscriber:Self Name:Quinton Gonzalez Payer ID:Not on file Type:RX Commercial Address: [address] RX NATH PLANS (INTERNAL) [facility] RX [employer] Commercial
--- OUTSIDE RECORDS SUMMARY | 2024-07-26 07:31 | XMS_ITS | CONTINUITY OF CARE DOCUMENT ---
Author Name lavelle valderrama Address Unknown Organization [facility] Office Address [address] [place] [address] [address] [place] [address] Phone [phone] Care Team Providers Care Automat Car Attendant Name Role Phone Eugene Connor MD Unavailable QUINTON GONZALEZ MD Unavailable [phone] PROBLEMS Condition Status Date Provider Notes Cardiovascular screening active Kristine Palma INSURANCE PROVIDERS Payer name Policy type / Coverage type [place] red constitution party ID SELF PAY TREATMENT PLAN Date Name CT, Coronary Calcium Score HISTORY OF PROCEDURES Procedure Date Procedure Name Provider Procedure Notes S tatus CT- Coronary CA score Eugene Connor MD completed
--- OUTSIDE RECORDS SUMMARY | 2024-07-26 07:31 | XMS_ITS | Clinical Summary ---
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
[2024-07-26 08:00] LABS: Cholesterol 189 mg/dL (0-200); HDL Direct 45 mg/dL; Triglycerides 70 mg/dL (<150)
[2024-07-26 08:11] LABS: LDL Cholesterol Direct 103 mg/dL
[2024-07-29 11:53] LABS: Homocysteine 12.8 umol/L (<11.4)
== END 2024-07-26 07:25 | disposition home or self-care (01) ==
LOC: ANHLAB 07:26
PROVIDERS: PCP Family Medicine; Visit Provider Family Medicine
DX: Z00.00 Encounter for general adult medical examination without abnormal findings (principal); I10 Essential (primary) hypertension; E78.5 Hyperlipidemia, unspecified; R00.1 Bradycardia, unspecified; I25.10 Atherosclerotic heart disease of native coronary artery without angina pectoris
CPT/HCPCS: 36415; 80061; 83090; 86141

== ENCOUNTER 2024-09-27 10:33 | Outpatient (CLI) | payer OTHER, SELFPAY ==
--- NOTE | 2024-09-27 | ECHO_ITS ---
Patient Info Name: Renny Gonzalez Age: 54 years : 1970 Gender: Male Ht: 76 in Wt: 270 lbs BSA: 2.59 m2 HR: 57 bpm BP: 148 / 93 mmHg Heart Rhythm: Sinus Rhythm Technical Quality: Good Exam Date: 09/27/2024 11:10 AM Patient Status: unknown Admit Date: 09/27/2024 Exam Type: CA echo doppler color flow Complete two-dimensional, color flow and Doppler transthoracic echocardiogram is performed. Wad Blanking Press Adjuster: Patricia Torres Attending Provider: Michael Hayes MD Summary 1. Complete two-dimensional, color flow and Doppler transthoracic echocardiogram is performed. 2. Left ventricular chamber dimension is normal. 3. Left ventricular systolic function is normal, estimated at 60-65. 4. There is mildly increased left ventricular wall thickness. 5. The left ventricular diastolic function is grade I diastolic dysfunction. 6. Left atrial chamber dimension is mildly enlarged. 7. There is mild to moderate aortic valve regurgitation. 8. There is mild mitral valve regurgitation. 9. There is mild tricuspid valve regurgitation. 10. There is moderate pulmonic regurgitation. 11. The prox ascending aorta size is mildly dilated. Left Ventricle Left ventricular chamber dimension is normal. Left ventricular systolic function is normal, estimated at 60-65. There is mildly increased left ventricular wall thickness. The left ventricular diastolic function is grade I diastolic dysfunction. Right Ventricle Right ventricular chamber dimension is normal. Right ventricular systolic function is normal. Left Atria Left atrial chamber dimension is mildly enlarged. Right Atria Right atrial chamber dimension is normal. Atrial Septum Intact interatrial septum visualized by color flow imaging. Aortic Valve The aortic valve is trileaflet. There is mild aortic valve sclerosis. There is no aortic valve stenosis. There is mild to moderate aortic valve regurgitation. Pulmonic Valve The pulmonic valve is normal. There is no pulmonic valve stenosis. There is moderate pulmonic regurgitation. Mitral Valve The mitral valve has normal leaflets. There is no mitral valve stenosis. There is mild mitral valve regurgitation. Tricuspid Valve The tricuspid valve leaflets are normal. There is no significant tricuspid valve stenosis. There is mild tricuspid valve regurgitation. No pulmonary hypertension, estimated pulmonary arterial systolic pressure is 30 mmHg. Pericardium/Pleural The pericardium appears normal. There is no pericardial effusion. Inferior Vena Cava Normal inferior vena cava with >50% collapse upon inspiration consistent with normal right atrial pressure, 5 mmHg. Aorta The aortic root size at the sinus of Valsalva is normal. The prox ascending aorta size is mildly dilated. Left Ventricular Outflow Tract Name Value Normal LVOT 2D LVOT Diameter 2.2 cm LVOT Doppler LVOT Peak Velocity 92 cm/s LVOT Peak Gradient 3 mmHg LVOT Mean Gradient 2 mmHg LVOT VTI 24 cm LVOT Stroke Volume 92 ml LVOT CO 5.3 l/min LVOT CI 2.0 l/min/m2 Pulmonic Valve Name Value Normal RVOT Doppler RVOT Peak Velocity 60 cm/s RVOT Peak Gradient 1 mmHg PV Doppler PV Peak Velocity 95 cm/s PV Peak Gradient 4 mmHg PV Regurgitation Doppler HI Peak End Diastolic Velocity 131 cm/s Mitral Valve Name Value Normal MV Diastolic Function MV E Peak Velocity 60 cm/s MV A Peak Velocity 61 cm/s MV E/A 1.0 MV Decel Time (PW) 244 ms Tricuspid Valve Name Value Normal TV Regurgitation Doppler TR Peak Velocity 252 cm/s TR Peak Gradient 25 mmHg Estimated PAP/RSVP RA Pressure 5 mmHg <=5 PA Systolic Pressure 30 mmHg <36 RV Systolic Pressure 30 mmHg <36 Aortic Valve Name Value Normal AV Doppler AV Peak Velocity 135 cm/s AV Peak Gradient 7 mmHg AV Area (Cont Eq Randolph) 2.6 cm2 AV DI (Randolph) 0.68 AV Regurgitation 2D LVOT Area 3.8 cm2 Ventricles Name Value Normal LV Dimensions 2D/MM IVS Diastolic Thickness (2D) 1.3 cm 0.6-1.0 LVID Diastole (2D) 5.5 cm 4.2-5.8 LVIW Diastolic Thickness (2D) 1.1 cm 0.6-1.0 LVID Systole (2D) 3.3 cm 2.5-4.0 LVOT Diameter 2.2 cm LV Mass (2D Cubed) 265.02 g 88.00-224.00 LV Mass Index (2D Cubed) 102 g/m2 49-115 Relative Wall Thickness (2D) 0.40 <=0.42 LV Fractional Shortening/Ejection Fraction 2D/MM LV Fractional Shortening (2D) 40 % 25-43 LV EF (2D Teichholz) 69 % LV Diastolic Volume (4C MOD) 153 ml LV EF (4C MOD) 66 % LV Diastolic Volume (2C MOD) 146 ml LV EF (2C MOD) 71 % LV Diastolic Volume (BP MOD) 149 ml 62-150 LV Diastolic Volume Index (BP MOD) 58 ml/m2 34-74 LV Systolic Volume (BP MOD) 49 ml 21-61 LV Systolic Volume Index (BP MOD) 19 ml/m2 11-31 LV EF (BP MOD) 67 % 52-72 LV Diastolic Length (4C) 9.4 cm LV Systolic Length (4C) 8.1 cm LV Stroke Volume (4C MOD) 101 ml Atria Name Value Normal LA Dimensions LA Volume (4C A-L) 62 ml LA Volume (BP A-L) 67 ml RA Dimensions RA Systolic Major [place] Length (4C) 6.9 cm 2.1-2.7 RA Area (4C) 16.8 cm2 <=18.0 Report Signatures
--- OUTSIDE RECORDS SUMMARY | 2024-09-27 10:37 | XMS_ITS | Referral Summary ---
Author Organization [facility] [address] [place] [address] [address] [place] [address] Care Team Providers Care Material Control Associate Name Role Phone Darius Yin MD Primary Care Provider Encounters Date Type Department Care Team Description 09/03/2024 Telephone [facility] Medical Group Cardiology [address] [facility] [address] [place] [phone] Michael Hayes MD 08/21/2024 Orders Only [facility] Cardiology [address] [place] [address] [address] [place] [address] ProviderKacey MD 08/21/2024 11:30 AM CDT Office Visit [facility] Medical [facility] Cardiology [address] [place] [address] [address] [place] [address] Michael Hayes MD Elevated coronary artery calcium score (Primary Dx); Abnormal findings on diagnostic imaging of heart and coronary circulation; Essential (primary) hypertension; ALONSO on CPAP; Hyperlipidemia LDL goal <70; Obesity (BMI 30.0-34.9) from Last 3 Months Allergies Active Allergy Reactions Criticality Noted Date Comments Penicillins Rash Reaction: Rash, Medications metoprolol XL (TOPROL-XL) 50 mg extended release tablet Take 1 tablet (50 mg total) by mouth daily Active solriamfetoL (Sunosi) 75 mg tablet 1 tablet (75 mg total) daily Active rosuvastatin (CRESTOR) 40 mg tablet Take 1 tablet (40 mg total) by mouth daily Active coenzyme Q10 200 mg capsule Take 1 capsule (200 mg total) by mouth daily Active vitamin A-vitamin C-vit E-min tablet Take by mouth Act mode loratadine (CLARITIN) 10 mg tablet Take 1 tablet (10 mg total) by mouth daily as needed for allergies Active aspirin 81 mg enteric coated tabletIndicatio ns:Elevated coronary artery calcium score Take 1 tablet (81 mg total) by mouth daily 5 08/22/19 26 Active Active Problems Problem Noted Date Diagnosed Date Obesity (BMI 30.0-34.9) 08/21/2024 Hyperlipidemia LDL goal <70 08/21/2024 ALONSO on CPAP 08/21/2024 Elevated coronary artery calcium score Essential (primary) hypertension 08/21/2024 Abnormal findings on diagnos tic imaging of heart and coronary circulation 08/21/2024 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 Social History Tobacco Use Types Packs/Day Years Used Date Smoking Tobacco: Never Passive Smoke Exposure: Never Smokeless Tobacco: Never Tobacco Cessation:Counseling Given: Not Answered Sex and Gender Information Value Date Recorded Sex Assigned at Not on file 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 Gender Identity Not on file Sexual Orientation Not on file Last Filed Vital Signs Vital Sign Reading Time Taken Comments Blood Pressure 120/82 08/21/2024 11:39 AM CDT Pulse 56 08/21/2024 11:39 AM CDT Temperature - - Respiratory Rate - - Oxygen Saturation 95% 08/21/2024 11:39 AM CDT Inhaled Oxygen Concentration - - Weight 125.6 kg (277 lb) 08/21/2024 11:39 AM CDT Height 193 cm (6' 4) 08/21/2024 11:39 AM CDT Body Mass Index 33.72 08/21/2024 11:39 AM CDT Plan of Treatment Not on file Procedures Procedure Name Priority Date/Time Associated Diagnosis Comments ELECTROCARDIOGRAM REPORT Routine 025 3:43 PM CDT Essential (primary) hypertension Elevated coronary artery calcium score ALONSO on CPAP LIPID PANEL Routine 07/26/2024 3:44 PM CDT CTA HEART W CALCIUM SCORING Schedule Routine, Read Routine (OP Routine) 07/17/2024 3:45 PM CDT from Last 3 Months Results * Electrocardiogram Report (08/21/2024 3:43 PM CDT) us Michael Hayes MD ECG ORDERABLES Final Res ult * Lipid panel (07/26/2024 3:44 PM CDT) SCRIBED Cholesterol, Total 189 30 - 199 mg/dL EXTERNAL LAB SCRIBED Triglycerides 70 <=149 mg/dL EXTERNAL LAB SCRIBED HDL 45 >=40 mg/dL EXTERNAL LAB SCRIBED LDL 103 <=129 mg/dL EXTERNAL LAB Scribed Non-HDL Cholesterol EXTERNAL LAB Comment:Not performed by lab . SCRIBED Total Cholesterol/HDL Ratio 189 NONE EXTERNAL LAB Blood Historical Provider LAB BLOOD ORDERABLES Edit ed Result - Final EXTERNAL LAB * CTA Heart W Calcium Scoring (07/17/2024 3:45 PM CDT) Anatomical Region Laterality Modality Chest N/A Computed Tomogra phy Historical Provider IMG CT PROCEDURES Edited Result - Final from Last 3 Months Insurance [facility] Care Teams Material Control Associate Relationship Specialty Start Date End Date Darius Yin MD [address] [facility] [address] [place] [address] PCP - General Family Medicine 04/21/22
--- OUTSIDE RECORDS SUMMARY | 2024-09-27 10:37 | XMS_ITS | Continuity of Care Document ---
Author Name [facility] Address [address] [place] [address] Organization [facility] Care Team Providers Care Athlete Marketing Agent Name Role Phone [facility] Unavailable Unavailable Problems Problem Status Onset Date Problem Type Date of Resolution Comme nts Source Tachycardia, unspecified Active Diagnosis Allergies, Adverse Reactions, Alerts Substance Category Reaction Severity Reaction type Status Date Reported Comments Source penicillins Assertion Drug allergy Active [facility]
--- OUTSIDE RECORDS SUMMARY | 2024-09-27 10:37 | XMS_ITS | Clinical Summary ---
Author Organization [facility] on Address [address] [place] [address] Care Team Providers Care Property Insurance Inspector Name Role Phone Unavailable Primary Care Provider [...] pain. 90 Capsule 2 03/30/2023 1:07 PM SLAG MOTOR OPERATOR 3 Active amLODIPine (NORVASC) 10 mg tablet Take 1 Tablet (10 mg) by mouth daily. 90 Tablet 3 04/20/2023 2:15 PM SLAG MOTOR OPERATOR 4 Active metoprolol succinate (TOPROL XL) 50 [...] daily. 90 Tablet 3 02/28/2024 4:58 PM SLAG MOTOR OPERATOR 4 Active Active Problems No known active problems Encounters Date Type Department Care Team Description 09/10/2024 External Device Data [facility] ABSTRACTION Provider, Abstract [...] 2:47 PM CDT Height 193 cm (6' 4) 08/26/2020 2:47 PM CDT Body Mass Index [...] (1 of 2) 2018 INFLUENZA VACCINE (#1) 2024 Insurance CHOICE PLUS [facility] CHOICE RX [employer] RX Member Subscriber Plan / Payer (Ef fective 2019-Present) Name:QUINTON GONZALEZ Relation to Subscriber:Self Name:Quinton Gonzalez Payer ID:Not on file Type:RX Commercial Address: [address] [employer] NATH PLANS (INTERNAL) [facility] [employer] RX [employer] Commercial
--- OUTSIDE RECORDS SUMMARY | 2024-09-27 10:37 | XMS_ITS | Clinical Summary ---
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 Encounters Date Type Department Care Team Description 09/03/2024 Telephone [facility] Medical [facility] Cardiology [address] [facility] [address] [place] [address] Michael Hayes MD 08/21/2024 11:30 AM CDT Office Visit [facility] Medical Group Cardiology [address] [place] [address] Michael Hayes MD Elevated coronary artery calcium score (Primary Dx); Abnormal findings on diagnostic imaging of heart and coronary circulation; Essential (primary) hypertension; ALONSO on CPAP; Hyperlipidemia LDL goal <70; Obesity (BMI 30.0-34.9) 08/21/2024 Orders Only [facility] Medical [facility] Cardiology [address] [place] [address] ProviderKacey MD from Last 3 Months Surgical History Surgery Date Site/Laterality Comments ABLATION SAPHENOUS VEIN W/ RFA Medical History Medical History Date Comments Hypertension Sleep apnea Family History Medical History Relation Name Comments Diabetes Father Heart failure Father Neuropathy Father Sleep apnea Father Breast cancer Mother Hypertension Mother Hypertension Sister 1 Nephritis Sister 2 Relation Name Status Comments Father Mother Alive Sister 1 Alive Sister 2 Social History Tobacco Use Types Packs/Day Years Used Date Smoking Tobacco: Never Passive Smoke Exposure: Never Smokeless Tobacco: Never Tobacco Cessation:Counseling Given: Not Answered Sex and Gender Information Value Date Recorded Sex Assigned at Not on file 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 Gender Identity Not on file Sexual Orientation Not on file Obstetrics History Last Filed Vital Signs Vital Sign Reading [...] 08/21/2024 11:39 AM CDT Plan of Treatment Health Maintenance Due Date Last Done Comments Colon Cancer Screening-Colonoscopy 1970 Depression Screening 1970 Hepatitis C Screening 1970 Prostate Cancer Screening-PSA 1970 DTaP/Tdap/Td Vaccine (1 - Tdap) 1979 Hepatitis B Screening 1986 Regular Well Visit/Exam 18-64 1986 Zoster Vaccine (1 of 2) 2018 Covid-19 Vaccine (4 - 2023-2 5 season) 2023 04/07/2021, 03/27/2020, 03/06/2020 Influenza Vaccine (Season Ended) 2024 Pneumococcal vaccine <65 Aged Out No longer eligible based on patient's age to complete this topic Procedures Procedure Name Priority Date/Time Associated Diagnosis Comments ELECTROCARDIOGRAM REPORT Routine 025 3:43 PM CDT Essential (primary) hypertension Elevated coronary artery calcium score ALONSO on CPAP LIPID PANEL Routine 07/26/2024 3:44 PM CDT CTA HEART W CALCIUM SCORING Schedule Routine, Read Routine (OP Routine) 07/17/2024 3:45 PM CDT from Last 3 Months Results * Electrocardiogram Report (08/21/2024 3:43 PM CDT) Michael Hayes MD ECG ORDERABLES Final Res [...] Laterality Modality Chest N/A Computed Tomogra phy us Historical Provider MD RING CT PROCEDURES Edited Result - Final from Last 3 Months Insurance [facility] Care Teams Rehab Services Aide Relationship Specialty Start Date End Date Darius Yin MD [address] [facility] [address] [place] [address] PCP - General Family Medicine 04/21/22
== END 2024-09-27 10:34 | disposition home or self-care (01) ==
PROVIDERS: PCP Family Medicine; Visit Provider Internal Medicine Cardiovascular Disease
DX: I10 Essential (primary) hypertension (principal); R93.1 Abnormal findings on diagnostic imaging of heart and coronary circulation; I08.3 Combined rheumatic disorders of mitral, aortic and tricuspid valves
CPT/HCPCS: 93306; C8929

== ENCOUNTER 2024-11-01 07:12 | Outpatient (CLI) | payer OTHER, SELFPAY ==
[2024-11-01 08:11] LABS: Alanine Aminotransferase 37 U/L (6-50); Albumin Level 4.2 g/dL (3.5-5.1); Alkaline Phosphatase 76 U/L (38-126); Anion Gap 8 mmol/L (4-12); Aspartate Amino Transferase 33 U/L (17-59); Bilirubin,Total 1.5 mg/dL (0.2-1.3); Blood Urea Nitrogen 16 mg/dL (9-20); Calcium 8.8 mg/dL (8.4-10.2); Carbon Dioxide 27 mmol/L (22-30); Chloride 105 mmol/L (98-107); Cholesterol 120 mg/dL (0-200); Estimated Glomerular Filt Rate > 60; Glucose 104 mg/dL (65-110); HDL Direct 44 mg/dL; Potassium 4.0 mmol/L (3.4-5.0); Sodium 140 mmol/L (137-145); Total Protein 7.2 g/dL (6.3-8.2); Triglycerides 65 mg/dL (<150)
[2024-11-08 04:07] LABS: Free Testosterone (Direct) 7.9 pg/mL (7.2-24.0)
== END 2024-11-01 07:13 | disposition home or self-care (01) ==
LOC: ANHLAB 07:13
PROVIDERS: PCP Family Medicine; Visit Provider Family Medicine
DX: E78.5 Hyperlipidemia, unspecified (principal); I10 Essential (primary) hypertension; R79.89 Other specified abnormal findings of blood chemistry
CPT/HCPCS: 36415; 80053; 80061; 83695; 84402; 84403

== ENCOUNTER 2025-01-17 07:33 | Outpatient (CLI) | payer OTHER, SELFPAY ==
--- OUTSIDE RECORDS SUMMARY | 2025-01-17 07:37 | XMS_ITS | Clinical Summary ---
Author Organization [facility] [address] Address [address] [place] [address] Care Team Providers Care Respiratory Therapist Name Role Phone Darius Yin MD Primary Care Provider Allergies Active Allergy Reactions Criticality Noted Date Comments David Inhibitors Cough Low 07/31/2024 Penicillins Rash Reaction: Rash, Medications metoprolol XL [...] Active Problems Problem Noted Date Diagnosed Date Mitral valve insufficiency and aortic valve insu fficiency 01/15/2025 Aortic root dilatation 01/15/2025 Obesity (BMI 30.0-34.9) 08/21/2024 Hyperlipidemia LDL goal <70 08/21/2024 ALONSO on CPAP 08/21/2024 Elevated coronary artery calcium score Essential (primary) hypertension 08/21/2024 Abnormal findings on diagnos tic imaging of heart and coronary circulation 08/21/2024 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 Encounters Date Type Department Care Team Description 01/15/2025 8:15 AM CDT Office Visit [facility] Medical Group Cardiology [address] [place] [phone] Michael Hayes MD Elevated coronary artery calcium score (Primary Dx); Essential (primary) hypertension; Hyperlipidemia LDL goal <70; Aortic root dilatation; Mitral valve insufficiency and aortic valve insufficiency from Last 3 Months Surgical History Surgery [...] on file 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 Gender Identity Not on file Sexual Orientation Not on file Obstetrics History Last Filed Vital Signs Vital Sign Reading Time Taken Comments Blood Pressure 114/70 01/15/2025 8:04 AM CDT Pulse 69 01/15/2025 8:04 AM CDT Temperature - - Respiratory Rate - - Oxygen Saturation 95% 01/15/2025 8:04 AM CDT Inhaled Oxygen Concentration - - Weight 128.7 kg (283 lb 12.8 oz) 01/15/2025 8:04 AM CDT Height 193 cm (6' 4) 01/15/2025 8:04 AM CDT Body Mass Index 34.55 01/15/2025 8:04 AM CDT Plan of Treatment Health Maintenance Due Date Last Done Comments Colon Cancer Screening-Colonoscopy 1970 Depression Screening 1970 Hepatitis C Screening 1968 Prostate Cancer Screening-PSA 1968 DTaP/Tdap/Td Vaccine (1 - Tdap) 1979 Hepatitis B Screening 1986 Regular Well Visit/Exam 18-64 1986 Zoster Vaccine (1 of 2) 2018 Covid-19 Vaccine (4 2024-2 6 season) 2024 04/07/2021, 03/27/2020, 03/06/2020 Influenza Vaccine (#1) 2024 Pneumococcal vaccine <65 Aged Out No longer eligible based on patient's age to complete this topic Insurance Care Teams Respiratory Therapist Relationship Specialty Start Date End Date Darius Yin MD [address] [address] PCP - General Family Medicine 04/21/22
[2025-01-17 08:51] LABS: Cholesterol 198 mg/dL (0-200); HDL Direct 41 mg/dL; Triglycerides 87 mg/dL (<150)
[2025-01-18 08:09] LABS: C-Reactive Protein, Cardiac 1.12 mg/L (0.00-3.00)
== END 2025-01-17 07:34 | disposition home or self-care (01) ==
LOC: ANHLAB 07:35
PROVIDERS: PCP Family Medicine; Visit Provider Internal Medicine Cardiovascular Disease
DX: R93.1 Abnormal findings on diagnostic imaging of heart and coronary circulation (principal); E78.5 Hyperlipidemia, unspecified
CPT/HCPCS: 36415; 80061; 86141